=== PATIENT | female | born 1950 | race African-American/Black ===

== ENCOUNTER → 2016-09-17 | Day surgery (SDC) | payer OTHER ==
[~2016-09-17] MED LIST: ALLO300T PO; AMLO5TAB4 PO; BACL10TA PO; BIMA2.5D OP; BRIM5DRO2 OP; ESZO3TAB28 PO; FLUT9.9S NS; HYDR-963 PO; INSU100C SQ; INSU100V13 SQ; IPRA3AMP NEB; IV RINGERS,LACTATED 1000ML 1,000 ML IV SCH; LIDOCAINE 2% PF Vial for OR 5 ML VIAL. ONE; LOSA50TA6 PO; METO-269 PO; METOPROLOL TARTRATE 5 MG/5 ML VIAL. ONE; PROPOFOL 40 ML IV ONE
--- NOTE | 2016-09-17 10:08 | PDOC1 ---
HISTORY & PHYSICAL H&P Florecita Zarate [id number] 1950 08/14/2016 02:00 PM 02/17 [facility] [place] [address] [place] [address] Ph. [phone] Patient: Florecita Zarate Date of : 1950 Date: 08/14/2016 2:00 PM Visit Type: Office Visit This 65 year old female presents for H/o colorectal polyp. History of Present Illness: 1. H/o colorectal polyp Prior screening: colonoscopy. Risk Factors: h/o colon polyp. Pertinent negatives include abdominal pain, change in bowel habits, change in stool caliber, constipation, decreased appetite, diarrhea, melena, nausea, rectal bleeding, vomiting, weight gain and weight loss. Additional information: No family history of colon cancer, No family history of Crohn's/colitis and No NSAID/ASA use. INTAKE COMMENTS: Intake Comments: Nurse Note: the pt is here today to schedule a repeat colonoscopy due to colon polyps in 2008, her last colonoscopy was in 2011 and there were no polyps at that time. PROBLEM LIST: Problem Description Onset Date Type 2 diabetes mellitus 11/17/2013 Diabetes mellitus without complication 06/05/2009 Post-nasal drip 04/26/2015 Essential hypertension 09/03/2011 Hyperlipidemia 09/03/2011 Gout 06/21/2013 Narcotic drug use 09/21/2015 Diabetic nephropathy associated with type 2 diabetes mellitus 01/23/2015 Primary osteoarthritis of both knees 12/22/2014 Right knee pain 12/22/2014 Degenerative joint disease involving multiple joints 06/05/2009 Multiple joint pain 06/05/2009 Low back pain 06/05/2009 Obesity 06/05/2009 PAST MEDICAL/SURGICAL HISTORY (Detailed) Disease/disorder Onset Date Management Date Comments EGD 06/01/2009 Hiatal Hernia, Esophagitis, BX-No abnormalitites Arthrocentesis of the right knee joint Arthrocentesis of the right knee joint Cholecystectomy Arthrocentesis of the right knee joint Cardiac pacemaker Arthrocentesis of the right knee joint Arthrocentesis of the right knee joint Arthrocentesis of the right knee joint Arthrocentesis of the right knee joint Arthrocentesis of the right knee joint Arthrocentesis of the right knee joint Arthrocentesis of the right knee joint Carpal tunnel syndrome carpal tunnel release diabetes mellitus Diabetes mellitus, type 2 Femoral fracture (left) Hip fracture (left) (L) Hip Fracture Repair Hyperlipidemia Hypertension Hypertension Internal hemorrhoids 07/19/2011 colonoscopy 07/19/2011 Internal hemorrhoids 07/19/2011 Obesity Obstructive Sleep Apnea Osteoarthritis Peptic ulcer disease Sick sinus syndrome Tachy-Maurice syndrome DIAGNOSTICS HISTORY: Test Ordered Interpretation Result completed UPPER GI ENDOSCOPY, BIOPSY 06/01/2009 Normal Imp: Hiatal Hernia,BX: No abnormalitites 06/01/2009 COLONOSCOPY AND BIOPSY 06/04/2011 abnormal Imp: Internal hemorrhoids. Minimal diverticulosis. No polyps. 07/19/2011 Mammogram 11/17/2013 11/22/2013 Test Ordered Ordering Comments Modifier UPPER GI ENDOSCOPY, BIOPSY 06/01/2009 COLONOSCOPY AND BIOPSY 06/04/2011 Mammogram 11/17/2013 Patient is postmenopausal. Medications (Active): Started Medication Directions Instruction Stopped 07/30/2016 allopurinol 300 mg tablet TAKE ONE DAILY 06/03/2016 BACLOFEN 10 MG TABLET TAKE ONE TABLET BY MOUTH AT BEDTIME AND 1 EXTRA TABLET AT BEDTIME NEEDED 02/01/2014 BD Insulin Pen Needle UF Short 31 X 07/02" use to inject QID with insulin 90 day supply - NPI# [id number] 01/05/2013 Combigan 0.2 %-0.5 % eye drops instill 1 drop by ophthalmic route every 12 hours into affected eye(s) 07/19/2014 cyclobenzaprine 10 mg tablet 1 po every 8 hours prn for muscle spasms 08/09/2016 DUONEB 2.5-0.5MG/3ML 180mL USE [1] VIAL IN MACHINE FOUR TIMES DAILY 07/10/2016 FLONASE 0.05% NASAL SPRAY INSTILL 2 SPRAYS INTO EACH NOSTRIL DAILY 08/12/2016 HUMALOG 100 UNITS/ML KWIKPEN INJECT 16 UNITS SUBCUTANEOUSLY BEFORE MEALS PLUS SLIDING SCALE 07/30/2016 hydrocodone 10 mg-acetaminophen 325 mg tablet take 1 - 2 Tablet by oral route every 6 hours as needed for pain 07/22/2016 LEVEMIR FLEXTOUCH 100 UNITS/ML INJECT 60 UNITS SUB-Q AT BEDTIME DIRECTED. 06/10/2016 LOSARTAN POTASSIUM 50 MG TAB TAKE ONE TABLET BY MOUTH DAILY. 01/05/2013 Lumigan 0.03 % eye drops instill 1 drop by Ophthalmic route every day into affected eye(OS) in the evening 07/03/2016 Lunesta 2 mg tablet take 1 tablet by oral route every day at bedtime Replaces Trazodone 07/03/16 - pt. willing to pay prince 07/31/2016 meclizine 12.5 mg tablet 1 po tid prn vertigo If Insurance does not cover this medication, please find an equivalent to this medication. Thanks If Insurance does not cover this medication please find an equivalent to this medication. Thanks 02/21/2014 melatonin 3 mg tablet 1 po every hs 06/10/2016 NORVASC 5 MG TABLET TAKE ONE TABLET BY MOUTH DAILY. 07/25/2016 [employer] Delica Lancets 30 gauge use to test blood sugars 3 times daily - DX: E11.21 90 day supply - NPI# [id number] ID# [id number] Spoke with Pharmacist 04/12/15 07/25/2016 [employer] Verio IQ Meter kit SUPPLY ONE KIT TO CHECK BLOOD SUGAR FOR DIABETIES DX:E11.21 Dx:E11.21 NPI#[id number] ONE TOUCH VERIO KIT 07/19/2016 [employer] Verio strips use to test blood sugars TID - DX: E11.21 DX: E11.21 NPI# [id number] 03/15/2014 pravastatin 40 mg tablet take 1 tablet (40MG) by oral route every day stop; simvastatin due to myalgias 07/11/2016 PROTONIX 40 MG TABLET EC TAKE 1 TABLET DAILY BEFORE BREAKFAST 06/10/2016 TOPROL XL 50 MG TABLET SA TAKE 1 & 1/2 TABLETS ONCE DAILY. Allergies: Ingredient Reaction Medication Name Comment SIMVASTATIN myalgias ZOLPIDEM TARTRATE hallucinations Ambien ATORVASTATIN CALCIUM Severe Muscle Cramps Lipitor COLCHICINE Gastric Ulcer Disease INDOMETHACIN Gastric Ulcer Disease Indocin INDOMETHACIN SODIUM Gastric Ulcer Disease Indocin RAY INHIBITORS REVIEW OF SYSTEMS System Neg/Pos Details Constitutional Negative Chills, fever, malaise, weight gain and weight loss. ENMT Negative Sore throat. Eyes Negative Double vision. Respiratory Negative Dyspnea and wheezing. Cardio Negative Chest pain and irregular heartbeat/palpitations. GI Positive See HPI. GI Negative Abdominal pain, change in bowel habits, change in stool caliber, constipation, decreased appetite, diarrhea, melena, nausea, see HPI, rectal bleeding and vomiting. Negative Dysuria and hematuria. Endocrine Negative Cold intolerance and heat intolerance. Psych Negative Anxiety. Integumentary Negative Hives and rash. MS Negative Joint pain. Chris/Lymph Negative Easy bleeding and easy bruising. Allergic/Immuno Negative Food allergies. Reproductive Positive The patient is post-menopausal. VITAL SIGNS Time BP mm/Hg Pulse /min Resp /min Temp F Ht ft Ht in Ht cm Wt lb Wt kg BMI kg/ m2 BSA m2 O2 Sat% 1:48 PM 132/78 88 98.0 0.0 66.00 167.64 277.00 125.645 44.71 96 Time Measured by 1:48 PM Deb Leyva PHYSICAL EXAM: Exam Findings Details Constitutional Normal Well developed. Eyes Normal Conjunctiva - Right: Normal, Left: Normal. Sclera - Right: Normal, Left: Normal. Nasopharynx Normal Lips/teeth/gums - Normal. Neck Exam Normal Inspection - Normal. Thyroid gland - Normal. Respiratory Normal Inspection - Normal. Auscultation - Normal. Cardiovascular Normal Regular rate and rhythm. No murmurs, gallops, or rubs. Vascular Normal Pulses - Carotids: Normal, Femoral: Normal, Dorsalis pedis: Normal. Abdomen Normal Inspection - Normal. Anterior palpation - No guarding. No abdominal tenderness. No hepatic enlargement. No splenic enlargement. No hernia. No Ascites. Skin Normal Inspection - Normal. Extremity Normal No edema. Psychiatric Normal Oriented to time, place, person, and situation. Appropriate mood and effect. Assessment/Plan # Detail Type Description 1. Assessment History of colon polyps (Z86.010). Patient [place] [facility] [place] Further diagnostic evaluations ordered today include(s) Colonoscopy to be performed today. She is to schedule a follow-up visit with Jonathan Hughes MD upon completion of work-up Electronically signed by: Jonathan Hughes MD 08/14/2016 03:20 PM Document generated by: Jonathan Hughes 08/14/2016 03:20 PM John Martinez MD, Family Practice; Aditya Arias MD Internal Medicine; Sumeet Denny MD, Internal Medicine; Roc Hughes MD Internal Medicine; Jonathan Hughes MD, Gastroenterology; Chapo Martinez MD, Rheumatology, S. Ben Chen, Physical Medicine/Rehab Shadi Grover APRN ------ 09/17/16 Patient seen and examined. No change in H&P JONATHAN HUGHES MD Sep 17, 2016 10:08
[2016-09-17 11:36] VITALS: BP 143/66
--- NOTE | 2016-09-18 16:59 | PATHOLOGY ---
PATHOLOGY REPORT * * * * * * * * FINAL DIAGNOSIS: Colon biopsy, ascending colon polyp: - Tubular adenoma. (JPM:maddy; 09/18/2016) COMMENT: There is no high-grade dysplasia or evidence of malignancy. REPORT ELECTRONICALLY SIGNED BY: Garth Gordon M.D. DATE/TIME: 09/18/2016 16:58 * * * * * * * * GROSS PATHOLOGY: Received in formalin labeled "Jon Zarate, ascending colon polyp," is a 1.3 x 1.0 x 0.8 cm polypoid piece of willsi soft tissue. The margin is inked and the tissue is bisected perpendicular to the margin and submitted in its entirety in cassette A1. (JPM; 09/17/16) INITIAL CPT CODE(S): A; 52068 Professional services performed by [facility] [place] [address] Technical services performed by [facility] at [address] [place] [address]. SPECIMEN(S) RECEIVED: A.Ascending colon polyp CLINICAL HISTORY: Colon polyps PATIENT: JON ZARATE /AGE: 10 1950 (Age: 65) PATIENT #: [id number] ALT CASE #: SPECIMEN COLLECTION DATE: 09/17/2016 SPECIMEN RECEIVED DATE: 09/17/2016 [facility] - [address] [place] [address] - PHONE: [phone] * * * END OF REPORT * * *
== END | disposition home or self-care (01) ==
LOC: SURG 09:24
PROVIDERS: ATTEND Internal Medicine Gastroenterology
DX: Z09 Encounter for follow-up examination after completed treatment for conditions other than malignant neoplasm (principal); Z87.19 Personal history of other diseases of the digestive system; D12.2 Benign neoplasm of ascending colon; K57.30 Diverticulosis of large intestine without perforation or abscess without bleeding; I10 Essential (primary) hypertension; K21.9 Gastro-esophageal reflux disease without esophagitis; M19.90 Unspecified osteoarthritis, unspecified site; Z86.69 Personal history of other diseases of the nervous system and sense organs; Z87.39 Personal history of other diseases of the musculoskeletal system and connective tissue; Z88.6 Allergy status to analgesic agent; Z88.8 Allergy status to other drugs, medicaments and biological substances
CPT/HCPCS: 45385; 82962; C1757; J2001; J2704; J3490; 88305